=== PATIENT | male | born 1970 | race Caucasian/White ===

== ENCOUNTER 2018-12-04 08:40 | Emergency (ER) | payer OTHER ==
--- NOTE | 2018-12-04 08:56 | PDOC ---
History of Present Illness - General Chief Complaint: Pain Stated Complaint: LLQ pain,hx of diverticulosis Time Seen by Provider: 12/04/18 08:56 History Source: Patient Exam Limitations: No Limitations - History of Present Illness Initial Comments: 48 yo M history diverticulosis, hyperlipidemia presents with LLQ quadrant pain for the past 3 days. Similar to prior flares of diverticulitis. Denies N/V/D, constipation, f/c. Pain is LLQ, radiating to the groin, constant. Past History - Past Medical History Allergies/Adverse Reactions: Allergies Allergy/AdvReac Type Severity Reaction Status Date / Time No Known Allergies Allergy Verified 12/04/18 08:43 Home Medications: Ambulatory Orders Atorvastatin Ca [Lipitor] 20 mg PO HS 12/04/18 COPD: No GI Disorders: Yes (diverticulosis) Hypercholesterolemia: Yes Review of Systems - Review of Systems Able to Perform ROS?: Yes Comments:: GENERAL/CONSTITUTIONAL: No fever or chills. No weakness. HEAD, EYES, EARS, NOSE AND THROAT: No change in vision. No ear pain or discharge. No sore throat. CARDIOVASCULAR: No chest pain or shortness of breath. RESPIRATORY: No cough, wheezing, or hemoptysis. GASTROINTESTINAL: No nausea, vomiting, diarrhea or constipation. +Abd pain. GENITOURINARY: No dysuria, frequency, or change in urination. MUSCULOSKELETAL: No joint or muscle swelling or pain. No neck or back pain. SKIN: No rash. NEUROLOGIC: No headache, vertigo, loss of consciousness, or change in strength/ sensation. ENDOCRINE: No increased thirst. No abnormal weight change. HEMATOLOGIC/LYMPHATIC: No anemia, easy bleeding, or history of blood clots. ALLERGIC/IMMUNOLOGIC: No hives or skin allergy. *Physical Exam - Physical Exam Comments: GENERAL: Awake, alert, and fully oriented, in no acute distress HEAD: No signs of trauma EYES: PERRLA, EOMI, sclera anicteric, conjunctiva clear ENT: Auricles normal inspection, hearing grossly normal, nares patent, oropharynx clear without exudates. Moist mucosa NECK: Normal ROM, supple, no lymphadenopathy, JVD, or masses LUNGS: Breath sounds equal, clear to auscultation bilaterally. No wheezes, and no crackles HEART: Regular rate and rhythm, normal S1 and S2, no murmurs, rubs or gallops ABDOMEN: Soft, +LLQ tenderness, normoactive bowel sounds. +Guarding, no rebound. No masses EXTREMITIES: Normal range of motion, no edema. No clubbing or cyanosis. No cords, erythema, or tenderness NEUROLOGICAL: Cranial nerves II through XII grossly intact. Normal speech, normal gait. Motor and sensation intact SKIN: Warm, Dry, normal turgor, no rashes or lesions noted. ED Treatment Course - LABORATORY CBC & Chemistry Diagram: 12/04/18 09:20 12/04/18 09:20 Medical Decision Making - Medical Decision Making 12/04/18 09:08 Pt declines pain meds at present. Will send labs and give IVF. CT a/p r/o diverticulitis. 12/04/18 11:13 CT c/w acute diverticulitis. Patient is stable, tolerating PO. Stable for DC and treatment as an outpatient. *DC/Admit/Observation/Transfer Diagnosis at time of Disposition: Diverticulitis - Discharge Dispostion Disposition: HOME Condition at time of disposition: Stable Decision to Admit order: No - Referrals - Patient Instructions Printed Discharge Instructions: Smoking Cessation - Post Discharge Activity
[2018-12-04 09:01] VITALS: TEMP 98.5; BMI 31.8
[2018-12-04] MEDS ORDERED: SODIUM CHLORIDE 1,000 ML IV STA (09:08)
[2018-12-04 09:56] LABS: ALBUMIN 4.2 g/dl (3.4-5.0); ALK PHOS 53 U/L (45-117); ANION GAP 10 MMOL/L (8-16); BILIRUBIN,TOTAL 1.1 mg/dl (0.2-1); BLOOD UREA NITROGEN 14 mg/dl (7-18); CALCIUM 9.2 mg/dl (8.5-10); CHLORIDE 107 mmol/L (98-107); CO2 21 mmol/L (21-32); CREATININE 0.8 mg/dl (0.55-1.3); GLUCOSE,RANDOM 103 mg/dl (74-106); POTASSIUM 4.3 mmol/L (3.5-5.1); SGOT/AST 20 U/L (15-37); SGPT/ALT 27 U/L (13-61); SODIUM 138 mmol/L (136-145); TOT PROT 7.3 g/dl (6.4-8.2)
[2018-12-04 10:11] LABS: BASO % 0.4 % (0-2.0); HEMATOCRIT 49.2 % (35.4-49); HEMOGLOBIN 16.3 GM/dl (11.7-16.9); LYMPH % 19.8 % (8-40); MCH 29.1 pg (25.7-33.7); MCHC 33.2 g/dl (32.0-35.9); MEAN CELL VOLUME 87.8 fl (80-96); MEAN PLT VOLUME 9.2 fl (7.5-11.1); MONO % 5.4 % (3.8-10.2); NEUT % 71.4 % (42.8-82.8); PLATELET COUNT 239 K/MM3 (134-434); RDW 12.7 % (11.9-15.9); WHITE BLOOD COUNT 10.6 K/mm3 (4.0-10.8)
[2018-12-04 11:22] VITALS: BP 138/89; PULSE 86
[2018-12-04 11:57] LABS: LIPASE 99 U/L (73-393)
== END 2018-12-04 11:18 | disposition home or self-care (01) ==
LOC: FER 08:42
PROC: 3E0337Z Introduction of Electrolytic and Water Balance Substance into Peripheral Vein, Percutaneous Approach (ICD-10-PCS; principal; 2018-12-04)
DX: K57.92 Diverticulitis of intestine, part unspecified, without perforation or abscess without bleeding (principal); E78.00 Pure hypercholesterolemia, unspecified
CPT/HCPCS: 36415; 74177-TC; 80053; 81003; 81015; 83690; 85025; 99283-25; J7030

== ENCOUNTER 2020-01-31 19:05 | Emergency (ER) | payer BC, OTHER ==
[2020-01-31 19:21] VITALS: BP 154/90; PULSE 94; TEMP 99.4; BMI 30.9
[2020-01-31] MEDS ORDERED: SODIUM CHLORIDE 1,000 ML IV STA (19:34)
[2020-01-31 20:24] LABS: BASO % 0.5 % (0-2.0); EOS % 3.2 % (0-4.5); HEMATOCRIT 47.8 % (35.4-49); HEMOGLOBIN 16.6 GM/dl (11.7-16.9); LYMPH % 18.5 % (8-40); MCH 29.2 pg (25.7-33.7); MCHC 34.8 g/dl (32.0-35.9); MEAN CELL VOLUME 83.8 fl (80-96); MEAN PLT VOLUME 8.9 fl (7.5-11.1); MONO % 6.1 % (3.8-10.2); NEUT % 71.7 % (42.8-82.8); PLATELET COUNT 263 K/MM3 (134-434); RDW 12.8 % (11.9-15.9); WHITE BLOOD COUNT 13.6 K/mm3 (4.0-10.8)
[2020-01-31 20:27] LABS: ALBUMIN 4.4 g/dl (3.4-5.0); BILIRUBIN,TOTAL 1.4 mg/dl (0.2-1); CALCIUM 9.2 mg/dl (8.5-10); CREATININE 0.9 mg/dl (0.55-1.3); TOT PROT 7.3 g/dl (6.4-8.2)
[2020-01-31] MEDS ORDERED: CIPROFLOXACIN 500 MG TABLET (RESTRICTED TO ID) PO ONE (22:16)
[2020-01-31] MEDS ORDERED: CIPROFLOXACIN 250 MG TABLET (RESTRICTED TO ID) PO ONE (22:18)
== END 2020-01-31 22:29 | disposition home or self-care (01) ==
LOC: SUPCPDRO 19:05 → FER 19:05
PROC: 3E0337Z Introduction of Electrolytic and Water Balance Substance into Peripheral Vein, Percutaneous Approach (ICD-10-PCS; principal; 2020-01-31)
DX: K57.92 Diverticulitis of intestine, part unspecified, without perforation or abscess without bleeding (principal)
CPT/HCPCS: 36415; 74177-TC; 80053; 81003; 81015; 85025; 87086; 99284-25; Q9967

== ENCOUNTER 2023-05-22 13:14 | Emergency (ER) | payer BC, OTHER ==
[2023-05-22 13:39] VITALS: BP 146/90; PULSE 80; RESP 16; TEMP 99.2; BMI 30.2
[2023-05-22] MEDS ORDERED: SODIUM CHLORIDE 0.9% 1000 ML INFUS.BAG IV ONE (14:04)
[2023-05-22 14:24] LABS: HEMATOCRIT 48.6 % (35.4-49); HEMOGLOBIN 16.7 G/dL (11.7-16.9); MCH 29.4 pg (25.7-33.7); MCHC 34.3 g/dl (32.0-35.9); MEAN CELL VOLUME 85.9 fl (80-96); MEAN PLT VOLUME 8.3 fl (7.5-11.1); PLATELET COUNT 242.2 10^3/uL (134-434); RBC 5.66 10^6/uL (4.00-5.60); RDW 14.5 % (11.9-15.9); WHITE BLOOD COUNT 9.7 10^3/uL (4.0-10.8)
[2023-05-22 14:38] LABS: EPITHELIAL CELLS RARE /hpf
[2023-05-22 14:49] LABS: PLATELET ESTIMATE ADEQUATE
[2023-05-22 15:10] LABS: POTASSIUM 4.5 mmol/L (3.5-5.1)
[2023-05-22 15:12] LABS: CALCIUM 9.3 mg/dL (8.5-10.1)
[2023-05-22 15:13] LABS: BLOOD UREA NITROGEN 15.1 mg/dL (7-18); MAGNESIUM 2.1 mg/dL (1.8-2.4)
[2023-05-22 15:16] LABS: CREATININE 0.9 mg/dL (0.55-1.3)
[2023-05-22 15:17] LABS: BILIRUBIN,TOTAL 0.7 mg/dL (0.2-1)
[2023-05-22 15:18] LABS: TOT PROT 7.5 g/dl (6.4-8.2)
[2023-05-22] MEDS ORDERED: metroNIDAZOLE 250 MG TABLET PO ONE (16:00)
[2023-05-22] MEDS ORDERED: SULFAMETHOXAZOLE/TRIMETHOPRIM 800MG/160MG D.S. TABLET PO ONE (16:00)
[2023-05-22] MEDS ORDERED: metroNIDAZOLE 250 MG TABLET ONE (16:02)
[2023-05-22] MEDS ORDERED: SULFAMETHOXAZOLE/TRIMETHOPRIM 800MG/160MG D.S. TABLET ONE (16:02)
== END 2023-05-22 16:11 | disposition home or self-care (01) ==
LOC: FER 13:14
DX: K57.92 Diverticulitis of intestine, part unspecified, without perforation or abscess without bleeding (principal); R10.32 Left lower quadrant pain
CPT/HCPCS: 36415; 74177-TC; 80053; 81003; 81015; 83690; 83735; 85027; 99285-25; Q9967